=== PATIENT | female | born 1960 | race American Indian/Alaskan Native ===

== ENCOUNTER 2017-01-22 23:35 | Emergency (ER) | payer BC, OTHER ==
[2017-01-22] MEDS ORDERED: NACL 0.9% 1000 ML 1,000 ML IV ONE (23:43)
[2017-01-23 01:02] LABS: Basophils % (Auto) 1.1 % (0.0-1.8); Eosinophils % (Auto) 3.6 % (0.0-4.3); Hematocrit 35.3 % (30.3-42.9); Hemoglobin 11.2 gm/dl (10.1-14.3); Mean Corpuscular HGB Conc 32 % (30-34); Mean Corpuscular Volume 82 fl (79-97); Platelet Count 346 K/mm3 (140-440); Red Blood Count 4.33 M/mm3 (3.65-5.03); Red Cell Distribution Width 16.8 % (13.2-15.2); White Blood Count 8.2 K/mm3 (4.5-11.0)
[2017-01-23 01:06] LABS: Mean Corpuscular Hemoglobin 26 pg (28-32)
[2017-01-23 01:08] LABS: Alanine Aminotransferase 14 units/L (7-56); Albumin 3.6 g/dL (3.9-5); Alkaline Phosphatase 113 units/L (35-129); Anion Gap 20 mmol/L; BUN/Creatinine Ratio 17.27; Blood Urea Nitrogen 19 mg/dL (7-17); Calcium 9.3 mg/dL (8.4-10.2); Carbon Dioxide 26 mmol/L (22-30); Chloride 98.7 mmol/L (98-107); Glucose 155 mg/dL (65-100); Lipase 31 units/L (13-60); Potassium 3.6 mmol/L (3.6-5.0); Sodium 141 mmol/L (137-145); Total Protein 7.1 g/dL (6.3-8.2)
[2017-01-23 01:13] LABS: INR 1.04 (0.87-1.13)
[2017-01-23 01:14] LABS: Partial Thromboplastin Time 26.1 Sec. (24.2-36.6)
[2017-01-23 03:13] LABS: Bilirubin,Urine NEG (Negative); Blood,Urine SM (Negative); Ketones,Urine NEG (Negative); Leukocyte Esterase,Urine SM (Negative); Mucus,Urine FEW /HPF; Nitrite,Urine NEG (Negative); Protein,Urine <15 mg/dL mg/dL (Negative); Urobilinogen,Urine < 2.0 mg/dL (<2.0)
--- NOTE | 2017-01-23 10:18 | Emergency Department Report ---
ED GI Bleed HPI - General Chief complaint: GI Bleed Stated complaint: ANAL BLEEDING Time Seen by Provider: 01/23/17 09:55 Source: patient Mode of arrival: Ambulatory Limitations: No Limitations - History of Present Illness Initial comments: 56-year-old female presents to the emergency department complaining of rectal bleeding. Patient reports onset of bleeding approximately 2 hours prior to arrival in the emergency department. She describes bright red blood and clots when having a bowel movement. She denies pain. She also denies fever, nausea, vomiting. She states prior to seeing any blood, her bowel movements have been normal. There are no other complaints. MD complaint: blood streaked stool, gross hematochezia -: Sudden, Last night Radiation: none Severity scale (0 -10): 0 Quality: painless Consistency: intermittent Improves with: none Worsens with: none Associated Symptoms: denies other symptoms Treatments Prior to Arrival: none - Related Data Previous Rx's Medication Instructions Recorded Last Taken Type RX: Acetaminophen/Codeine [Tylenol 1 - 2 tab PO Q6H PRN #25 tab 06/23/14 Unknown Rx /Codeine # 3 tab] RX: Cyclobenzaprine [Flexeril 10 10 mg PO TID PRN #20 tablet 06/23/14 Unknown Rx MG TAB] RX: Naproxen [Naprosyn TAB] 500 mg PO BID #30 tablet 06/23/14 Unknown Rx RX: ALBUTEROL NEB's [Proventil 2.5 mg IH Q4HR PRN #30 ampul 05/21/16 Unknown Rx 0.083% NEBS] RX: Albuterol Sulfate [Ventolin 2 puff IH Q4H PRN #1 hfa.aer.ad 05/21/16 Unknown Rx HFA] RX: Ipratropium [place] [Atrovent 12.9 gm IH Q6HR PRN #1 hfa.aer.ad 05/21/16 Unknown Rx Hfa] RX: predniSONE [Deltasone] 3 tab PO QDAY #15 tab 05/21/16 Unknown Rx Azithromycin [Zithromax Z-FEDERICO] 250 mg PO DAILY #1 tab 06/07/16 Unknown Rx Prednisone [predniSONE 10 mg 10 mg PO .TAPER #1 tab.ds.pk 06/07/16 Unknown Rx (6-Day Pack, 21 Tabs)] RX: ALBUTEROL Inhaler [ProAir HFA 2 puff IH QID PRN #1 inhalation 06/07/16 Unknown Rx Inhaler] Hydrocortisone [Anucort-HC SUPPOS] 25 mg RC BID #14 supp.rect 01/23/17 Unknown Rx Allergies Allergy/AdvReac Type Severity Reaction Status Date / Time No Known Allergies Allergy Unverified 06/23/14 10:15 ED Review of Systems ROS: Stated complaint: ANAL BLEEDING Other details as noted in HPI Comment: All other systems reviewed and negative Gastrointestinal: hematochezia. denies: abdominal pain, nausea, vomiting, diarrhea, constipation ED Past Medical Hx - Past Medical History Previous Medical History?: Yes Hx Hypertension: Yes Hx Heart Attack/AMI: No Hx Congestive Heart Failure: No Hx Diabetes: No Hx Deep Vein Thrombosis: No Hx Pulmonary Embolism: No Hx GERD: No Hx Liver Disease: No Hx Renal Disease: No Hx Sickle Cell Disease: No Hx Arthritis: Yes Hx Headaches / Migraines: No Hx Seizures: No Hx Kidney Stones: No Hx Psychiatric Treatment: Yes (ANXIETY, DEPRESSION) Hx Asthma: Yes Hx COPD: Yes Hx Tuberculosis: No Hx Dementia: No Hx HIV: No Additional medical history: DDD - Surgical History Past Surgical History?: Yes Hx Coronary Stent: No Hx Open Heart Surgery: No Hx Pacemaker: No Hx Internal Defibrillator: No Hx Cholecystectomy: No Hx Appendectomy: No Hx Breast Surgery: No Additional Surgical History: LEFT KNEE REPLACEMENT. LEFT HIP SURGERY - Family History Family history: no significant - Social History Smoking Status: Unknown if ever smoked Substance Use Type: None - Medications Home Medications: Home Medications Medication Instructions Recorded Confirmed Last Taken Type RX: Acetaminophen/Codeine [Tylenol 1 - 2 tab PO Q6H PRN #25 tab 06/23/14 Unknown Rx /Codeine # 3 tab] RX: Cyclobenzaprine [Flexeril 10 10 mg PO TID PRN #20 tablet 06/23/14 06/07/16 Unknown Rx MG TAB] RX: Naproxen [Naprosyn TAB] 500 mg PO BID #30 tablet 06/23/14 06/07/16 Unknown Rx RX: ALBUTEROL NEB's [Proventil 2.5 mg IH Q4HR PRN #30 ampul 05/21/16 06/07/16 Unknown Rx 0.083% NEBS] RX: Albuterol Sulfate [Ventolin 2 puff IH Q4H PRN #1 hfa.aer.ad 05/21/16 Unknown Rx HFA] RX: Ipratropium [place] [Atrovent 12.9 gm IH Q6HR PRN #1 hfa.aer.ad 05/21/16 Unknown Rx Hfa] RX: predniSONE [Deltasone] 3 tab PO QDAY #15 tab 05/21/16 06/07/16 Unknown Rx Azithromycin [Zithromax Z-[place]] 250 mg PO DAILY #1 tab 06/07/16 Unknown Rx Prednisone [predniSONE 10 mg 10 mg PO .TAPER #1 tab.ds.pk 06/07/16 Unknown Rx (6-Day Pack, 21 Tabs)] RX: ALBUTEROL Inhaler [ProAir HFA 2 puff IH QID PRN #1 inhalation 06/07/16 Unknown Rx Inhaler] Hydrocortisone [Anucort-HC SUPPOS] 25 mg RC BID #14 supp.rect 01/23/17 Unknown Rx ED Physical Exam - General Limitations: No Limitations General appearance: alert, in no apparent distress - Head Head exam: Present: atraumatic, normocephalic - Eye Eye exam: Present: normal appearance, PERRL, EOMI - ENT ENT exam: Present: normal exam, normal orophraynx, mucous membranes moist - Neck Neck exam: Present: normal inspection, full ROM. Absent: tenderness - Respiratory Respiratory exam: Present: normal lung sounds bilaterally. Absent: respiratory distress - Cardiovascular Cardiovascular Exam: Present: regular rate, normal rhythm, normal heart sounds - GI/Abdominal GI/Abdominal exam: Present: soft, normal bowel sounds. Absent: distended, tenderness - Rectal Rectal exam: Present: normal inspection, normal rectal tone, hemorrhoids (non- thrombosed, external), other (Nurse Mayi Kate was present during exam as cyber defense analyst.) - Extremities Exam Extremities exam: Present: normal inspection, full ROM. Absent: tenderness - Back Exam Back exam: Present: normal inspection, full ROM. Absent: tenderness - Neurological Exam Neurological exam: Present: alert, oriented X3. Absent: motor sensory deficit - Skin Skin exam: Present: warm, dry, intact ED Course Vital Signs 01/22/17 01/23/17 23:50 05:08 Temperature 98.1 F 97.7 F Pulse Rate 130 H 95 H Respiratory 24 18 Rate Blood Pressure 144/99 Blood Pressure 148/87 [Right] O2 Sat by Pulse 98 100 Oximetry ED Medical Decision Making - Lab Data Result diagrams: 01/23/17 00:14 01/23/17 00:14 - EKG Data -: EKG Interpreted by Me EKG shows normal: sinus rhythm, intervals, QRS complexes, ST-T waves Rate: normal - EKG Data When compared to previous EKG there are: no significant change Interpretation: unchanged when compared t (06/05/2016), other (left axis deviation) - Medical Decision Making Lab results reviewed and discussed with the patient. Patient's vital signs remained stable and her labs are unremarkable. Patient will be discharged home at this time to follow up with her primary care physician. - Differential Diagnosis hemorrhoids, diverticulosis, anemia Critical care attestation.: If time is entered above; I have spent that time in minutes in the direct care of this critically ill patient, excluding procedure time. ED Disposition Clinical Impression: External hemorrhoids without complication Disposition: DC-01 TO HOME OR SELFCARE Is pt being admited?: No Condition: Stable Instructions: Hemorrhoids (ED) Prescriptions: Hydrocortisone [Anucort-HC SUPPOS] 25 mg RC BID #14 supp.rect Referrals: [facility] [Provider Group] - 3-5 Days Forms: Accompanied Note Time of Disposition: 10:19
[2017-01-23 11:05] VITALS: BP 139/87
== END 2017-01-23 10:40 | disposition home or self-care (01) ==
LOC: ED 23:35
DX: K64.4 Residual hemorrhoidal skin tags (principal); I10 Essential (primary) hypertension; M19.90 Unspecified osteoarthritis, unspecified site; F31.9 Bipolar disorder, unspecified; F41.9 Anxiety disorder, unspecified; J45.909 Unspecified asthma, uncomplicated
CPT/HCPCS: 36415; 80053; 81001; 83690; 85025; 85610; 85730; 86850; 86900; 86901; 93005; 93010; 99284